=== PATIENT | male | born 1940 | race Caucasian/White ===

== ENCOUNTER 2018-05-30 18:45 | Emergency (ER) | payer MEDICARE, OTHER ==
--- NOTE | 2018-05-30 19:30 | EDM.PDOC ---
ED HPI GENERAL MEDICAL PROBLEM - General Chief Complaint: Genitourinary Problem Stated Complaint: IN ALOT OF PAIN Time Seen by Provider: 05/30/18 19:27 Source of Information: Reports: Patient, Family, RN, RN Notes Reviewed History Limitations: Reports: No Limitations - History of Present Illness INITIAL COMMENTS - FREE TEXT/NARRATIVE: Patient was seen in ER previously today for urinary retention after a same day surgery yesterday. He was catheterized at that time for 1000ml urine output. Patient has drank fluids throughout the day today and returns to the ER uncomfortable with urinary retention again. He was told by the previous provider that he would need to have an indwelling catheter placed for a few days until seen by his primary care facility. Patient states he has had trouble with urinary retention after every surgical procedure he has had. Onset: Today Pelvic Pain Score (Numeric/FACES): 8 - Related Data Allergies Allergy/AdvReac Type Severity Reaction Status Date / Time amoxicillin [Amoxicillin] Allergy Cannot Verified 05/30/18 19:13 Remember Home Meds: Home Meds Aspirin [Aspirin EC] 81 08/20/13 [History] Citric Acid/Sodium Citrate [Cytra-2 Oral Solution] 30 ml PO BID 08/20/13 [ History] Iron 22.5 mg PO 08/20/13 [History] [place]-3S/DHA/Epa/Fish Oil [Fish Oil Dr 1,000 mg Softgel] 1 each PO BID 08/20/13 [History] Pentoxifylline [TRENtal] 400 mg PO TID 08/20/13 [History] Simvastatin [Zocor] 20 mg PO BEDTIME 08/20/13 [History] Tamsulosin [Tamsulosin 24 Hr] 0.4 mg PO DAILY 08/20/13 [History] azaTHIOprine [Imuran] 50 mg PO DAILY 08/20/13 [History] Past Medical History HEENT History: Reports: None Cardiovascular History: Reports: High Cholesterol Respiratory History: Reports: None Gastrointestinal History: Reports: None Genitourinary History: Reports: Prostate Disorder, Other (See Below) Other Genitourinary History: stage 4 kidney disease Neurological History: Reports: None Psychiatric History: Reports: None Endocrine/Metabolic History: Reports: None Hematologic History: Reports: Anemia Immunologic History: Reports: AIDS Oncologic (Cancer) History: Reports: Basal Cell Carcinoma Dermatologic History: Reports: None - Past Surgical History GI Surgical History: Reports: Hernia, Abdominal Musculoskeletal Surgical History: Reports: Knee Replacement Other Musculoskeletal Surgeries/Procedures:: R) knee. Social & Family History - Family History Family Medical History: Noncontributory - Tobacco Use Smoking Status *Q: Never Smoker - Caffeine Use Caffeine Use: Reports: Coffee - Recreational Drug Use Recreational Drug Use: No - Living Situation & Occupation Living situation: Reports: , with Spouse Occupation: Retired ED ROS GENERAL - Review of Systems Review Of Systems: ROS reveals no pertinent complaints other than HPI. ED EXAM, RENAL/ - Physical Exam Exam: See Below Exam Limited By: No Limitations General Appearance: Alert, WD/WN, No Apparent Distress Eye Exam: Bilateral Eye: EOMI, Normal Inspection Ears: Normal External Exam, Hearing Grossly Normal Nose: Nasal Swelling, Other (Recent skin grafting on the nose. Intact, no active bleeding, covered with bandage. ) Throat/Mouth: Normal Inspection, Normal Lips, Normal Teeth, Normal Gums, Normal Oropharynx, Normal Voice, No Airway Compromise Head: Atraumatic, Normocephalic Neck: Other (Ash intact from recent skin grafting done yesterday. No active bleeding or drainage. ) Respiratory/Chest: No Respiratory Distress, Lungs Clear, Normal Breath Sounds, No Accessory Muscle Use, Chest Non-Tender Cardiovascular: Normal Peripheral Pulses, Regular Rate, Rhythm, No Edema, No Gallop, No JVD, No Murmur, No Rub GI/Abdominal: Normal Bowel Sounds, Soft, Non-Tender, No Organomegaly, No Distention, No Abnormal Bruit, No Mass (Male) Exam: Deferred Rectal (Males) Exam: Deferred Back Exam: Normal Inspection, Full Range of Motion, NT Extremities: Normal Inspection, Normal Range of Motion, Non-Tender, Normal Capillary Refill, No Pedal Edema Neurological: Alert, Oriented, CN II-XII Intact, Normal Cognition, Normal Gait, Normal Reflexes, No Motor/Sensory Deficits Psychiatric: Normal Affect, Normal Mood Skin Exam: Warm, Dry, Intact, Normal Color, No Rash Lymphatic: No Adenopathy Course - Vital Signs Last Recorded V/S: Last Vital Signs Temp 100 F 05/30/18 19:16 Pulse 87 05/30/18 19:16 Resp 18 05/30/18 19:16 BP 163/71 H 05/30/18 19:16 Pulse Ox 97 05/30/18 19:16 - Orders/Labs/Meds Orders: Active Orders 24 hr Category Date Time Status Caicedo Catheter Insertion [Insert Urinary Catheter] [OM. Care 05/30/18 19:30 Ordered PC] Q24H Urinary Catheter Assessment [RC] ASDIRECTED Care 05/30/18 19:24 Active - Re-Assessments/Exams Free Text/Narrative Re-Assessment/Exam: 05/30/18 19:46 Indwelling catheter placed by nursing staff. Patient states relief with urine output. A leg bag placed and patient will go home with the catheter. Departure - Departure Time of Disposition: 19:42 Disposition: Home, Self-Care 01 Condition: Good Clinical Impression: Acute urinary retention - Discharge Information *PRESCRIPTION DRUG MONITORING PROGRAM REVIEWED*: No *COPY OF PRESCRIPTION DRUG MONITORING REPORT IN PATIENT JACK: No Instructions: Indwelling Urinary Catheter Care, Adult, Indwelling Urinary Catheter Insertion, Care After, Acute Urinary Retention, Male, [id number] Forms: ED Department Discharge Additional Instructions: Follow up with your primary care facility. [facility] tomorrow to make an appointment with Dr. Hernandez. Drink plenty of fluids. Return to the ER with any further problems. - My Orders Last 24 Hours: My Active Orders 05/30/18 19:24 Urinary Catheter Assessment [RC] ASDIRECTED 05/30/18 19:30 Caicedo Catheter Insertion [Insert Urinary Catheter] [OM.PC] Q24H - Assessment/Plan Last 24 Hours: My Active Orders 05/30/18 19:24 Urinary Catheter Assessment [RC] ASDIRECTED 05/30/18 19:30 Caicedo Catheter Insertion [Insert Urinary Catheter] [OM.PC] Q24H
== END 2018-05-30 20:11 | disposition home or self-care (01) ==
LOC: DL.ED 18:45
DX: R33.9 Retention of urine, unspecified (principal); N18.4 Chronic kidney disease, stage 4 (severe); D63.1 Anemia in chronic kidney disease; Z88.1 Allergy status to other antibiotic agents; Z79.899 Other long term (current) drug therapy
CPT/HCPCS: 51702; 99283

== ENCOUNTER 2019-03-10 14:10 | Emergency (ER) | payer MEDICARE, OTHER ==
[2019-03-10] MEDS ORDERED: Sodium Chloride 0.9% 10 ML Syringe FLUSH PRN (15:37)
[2019-03-10] MEDS ORDERED: Morphine 2 MG/ML Syringe IVPUSH ONE ×2 (16:04→16:50)
[2019-03-10 16:18] LABS: ANION GAP 15.7
[2019-03-10] MEDS ORDERED: Sodium Chloride 0.9% 1,000 ML IV ONE (16:32)
--- NOTE | 2019-03-10 18:42 | EDM.PDOC ---
Scribed by Meg Hernandez 03/10/19 1602 for Nimco Nance NP ED HPI GENERAL MEDICAL PROBLEM - General Chief Complaint: Abdominal Pain Stated Complaint: IN PAIN, POSSIBLE KIDNEY STONE Time Seen by Provider: 03/10/19 15:52 Source of Information: Reports: Patient, RN, RN Notes Reviewed History Limitations: Reports: No Limitations - History of Present Illness INITIAL COMMENTS - FREE TEXT/NARRATIVE: Patient presents to ER stating that on Monday he started with left flank pain. It went away on Monday and returned Monday afternoon. He has a history of kidney stones x3. He has no urinary symptoms. Pain is constant /. 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 At 2 P.M. he had nausea briefly. The pain is colicky in nature. His physician in [place] is Dr. Hernandez. He has allergy to Percocet and amoxicillin. Onset Date: 03/08/19 Duration: Getting Worse Location: Reports: Other (left flank) Quality: Reports: Ache Severity: Moderate Improves with: Reports: None Worsens with: Reports: None Associated Symptoms: Reports: No Other Symptoms Left Flank Pain Score (Numeric/FACES): 8 - Related Data Allergies Allergy/AdvReac Type Severity Reaction Status Date / Time amoxicillin [Amoxicillin] Allergy Rash Verified 03/10/19 14:37 oxycodone [From Percocet] AdvReac Other Verified 03/10/19 14:43 Home Meds: Home Meds Iron 22.5 mg PO DAILY 08/20/13 [History] Pentoxifylline [TRENtal] 400 mg PO BID 08/20/13 [History] Tamsulosin [Tamsulosin 24 Hr] 0.4 mg PO BEDTIME 08/20/13 [History] Acetaminophen/Caffeine [Excedrin Tension Headache Cplt] 1 each PO DAILY PRN [History] atorvaSTATin [Lipitor] 20 mg PO ASDIRECTED 03/10/19 [History] Past Medical History HEENT History: Reports: None Cardiovascular History: Reports: High Cholesterol. Denies: Other (See Below) ( bradycardia) Respiratory History: Reports: None Gastrointestinal History: Reports: None Genitourinary History: Reports: Prostate Disorder, Renal Calculus, Other (See Below) Other Genitourinary History: stage 4 kidney disease Musculoskeletal History: Reports: Other (See Below) (shoulder issues) Neurological History: Reports: None Psychiatric History: Reports: None Endocrine/Metabolic History: Reports: None Hematologic History: Reports: Anemia, Other (See Below) (autoimmune vasculitis 2 -3 months ago.) Immunologic History: Reports: AIDS Oncologic (Cancer) History: Reports: Basal Cell Carcinoma Dermatologic History: Reports: None - Past Surgical History GI Surgical History: Reports: Hernia, Abdominal Musculoskeletal Surgical History: Reports: Knee Replacement Other Musculoskeletal Surgeries/Procedures:: R) knee. Social & Family History - Family History Family Medical History: Noncontributory - Tobacco Use Smoking Status *Q: Never Smoker - Caffeine Use Caffeine Use: Reports: Coffee Caffeine Use Comment: 3 cups daily. - Recreational Drug Use Recreational Drug Use: No - Living Situation & Occupation Living situation: Reports: , with Spouse Occupation: Retired ED ROS GENERAL - Review of Systems Review Of Systems: ROS reveals no pertinent complaints other than HPI. ED EXAM, GI/ABD - Physical Exam Exam: See Below Exam Limited By: No Limitations General Appearance: Alert, WD/WN, Mild Distress Eyes: Bilateral: Normal Appearance Head: Atraumatic, Normocephalic Respiratory/Chest: No Respiratory Distress, Lungs Clear, Normal Breath Sounds, No Accessory Muscle Use, Chest Non-Tender Cardiovascular: Normal Peripheral Pulses, Regular Rate, Rhythm, No Edema, No Gallop, No JVD, No Murmur, No Rub GI/Abdominal Exam: Normal Bowel Sounds, Soft, Tender (left flank tenderness) Back Exam: Other (left CVA tenderness) Extremities: Normal Inspection Neurological: Alert, Oriented Skin Exam: Warm, Dry, Intact, Normal Color, No Rash Course - Vital Signs Last Recorded V/S: Last Vital Signs Temp 36.9 C 03/10/19 14:18 Pulse 48 L 03/10/19 17:38 Resp 18 03/10/19 17:38 BP 158/60 H 03/10/19 17:38 Pulse Ox 97 03/10/19 17:38 - Orders/Labs/Meds Orders: Active Orders 24 hr Category Date Time Status Peripheral IV Care [RC] . DIRECTED Care 03/10/19 15:37 Active Sodium Chloride 0.9% [Saline Flush] Med 03/10/19 15:37 Active 10 ml FLUSH ASDIRECTED PRN Peripheral IV Insertion Adult [OM.PC] Routine Oth 03/10/19 15:37 Ordered Medication Orders Sodium Chloride (Saline Flush) 10 ml FLUSH ASDIRECTED PRN PRN Reason: Keep Vein Open Last Admin: 03/10/19 15:45 Dose: 10 ml Labs: Laboratory Tests 03/10/19 03/10/19 03/10/19 Range/Units 14:30 15:44 15:44 WBC 12.1 H (5.0-10.0) 10^3/uL RBC 4.10 L (4.6-6.2) 10^6/uL Hgb 13.0 L (14.0-18.0) g/dL Hct 38.9 L (40.0-54.0) % MCV 94.9 (80-100) fL MCH 31.7 (27.0-34.0) pg MCHC 33.4 (33.0-35.0) g/dL Plt Count 199 (150-450) 10^3/uL Neut % (Auto) 89.8 H (42.2-75.2) % Lymph % (Auto) 5.1 L (20.5-50.1) % [place] % (Auto) 5.0 (2-8) % Eos % (Auto) 0.0 L (1.0-3.0) % Baso % (Auto) 0.1 (0.0-1.0) % Sodium 135 (135-145) mmol/L Potassium 4.7 (3.6-5.0) mmol/L Chloride 101 (101-111) mmol/L Carbon Dioxide 23.0 (21.0-31.0) mmol/L Anion Gap 15.7 BUN 61 H (7-18) mg/dL Creatinine 4.2 H (0.6-1.3) mg/dL Est Cr Clr Drug Dosing 13.80 mL/min Estimated GFR (MDRD) 14 BUN/Creatinine Ratio 14.52 Glucose 137 H (74-105) mg/dL Calcium 9.1 (8.4-10.2) mg/dl Total Bilirubin 1.1 H (0.2-1.0) mg/dL AST 20 (10-42) IU/L ALT 20 (10-60) IU/L Alkaline Phosphatase 43 (42-121) IU/L Total Protein 7.1 (6.7-8.2) g/dl Albumin 3.9 (3.2-5.5) g/dl Globulin 3.2 Albumin/Globulin Ratio 1.22 Urine Color Yellow (YELLOW) Urine Appearance Clear (CLEAR) Urine pH 5.5 (5.0-9.0) Ur Specific [place] 1.025 (1.005-1.030) Urine Protein 100 H (NEGATIVE) Urine Glucose (UA) Negative (NEGATIVE) Urine Ketones Negative (NEGATIVE) Urine Occult Blood Moderate H (NEGATIVE) Urine Nitrite Positive H (NEGATIVE) Urine Bilirubin Negative (NEGATIVE) Urine Urobilinogen 0.2 (0.2-1.0) mg/dL Ur Leukocyte Esterase Trace H (NEGATIVE) Urine RBC 20-30 H /HPF Urine WBC 0-5 (0-5/HPF) /HPF Ur Epithelial Cells Few (NOT SEEN) /HPF Urine Bacteria Few (0-FEW/HPF) /HPF Urine Mucus Few H (NOT SEEN) /LPF Meds: Medications Generic Name Dose Route Start Last Admin Trade Name Freq PRN Reason Stop Dose Admin Sodium Chloride 10 ml 03/10/19 15:37 03/10/19 15:45 Saline Flush FLUSH 10 ml ASDIRECTED PRN Administration Keep Vein Open Discontinued Medications Generic Name Dose Route Start Last Admin Trade Name Freq PRN Reason Stop Dose Admin Sodium Chloride 1,000 mls @ 2,000 mls/hr 03/10/19 16:32 03/10/19 16:54 Normal Saline IV 03/10/19 17:01 2,000 mls/hr .BOLUS ONE Administration Morphine Sulfate 2 mg 03/10/19 16:04 03/10/19 16:09 Morphine IVPUSH 03/10/19 16:05 2 mg ONETIME ONE Administration Morphine Sulfate 2 mg 03/10/19 16:50 03/10/19 16:55 Morphine IVPUSH 03/10/19 16:51 2 mg ONETIME ONE Administration - Radiology Interpretation Free Text/Narrative:: CT abdomen/pelvis: Moderate left hydronephrosis, no sign of an obstructing calculus. ?Recently passed and subsequently voided calculus. Right nephrolithiasis without hydronephrosis. 2cm right common iliac artery aneurysm. Multiple chronic appearing lumbar compression fractures, L5 spondylolysis with grade 1 spondylolisthesis. See rad report. - Re-Assessments/Exams Free Text/Narrative Re-Assessment/Exam: 03/10/19 18:39 Most likely a stone passed left ureter with mild hydronephrosis. He has a stone in the right . Still having left over discomfort on the left flank. Urine negative for infection. Departure - Departure Time of Disposition: 18:37 Disposition: Refer to Observation Condition: Good Clinical Impression: Renal stone - Discharge Information *PRESCRIPTION DRUG MONITORING PROGRAM REVIEWED*: Not Applicable *COPY OF PRESCRIPTION DRUG MONITORING REPORT IN PATIENT JACK: Not Applicable Instructions: Renal Colic Forms: ED Department Discharge Additional Instructions: Take flomax tonight. Increase oral intake. See PCP this week. We discussed your CT scan and will need your creatine rechecked. [place] (pain medication) only as needed. - My Orders Last 24 Hours: My Active Orders 03/10/19 15:37 Peripheral IV Care [RC] . DIRECTED Sodium Chloride 0.9% [Saline Flush] 10 ml FLUSH ASDIRECTED PRN Peripheral IV Insertion Adult [OM.PC] Routine - Assessment/Plan Last 24 Hours: My Active Orders 03/10/19 15:37 Peripheral IV Care [RC] . DIRECTED Sodium Chloride 0.9% [Saline Flush] 10 ml FLUSH ASDIRECTED PRN Peripheral IV Insertion Adult [OM.PC] Routine I have read and agree with the documentation that has been completed regarding this visit. By signing this record, I attest that the documentation was completed in my physical presence and is an accurate record of the encounter.
[2019-03-10] MEDS ORDERED: Acetaminophen/HYDROcodone 325-5 MG Tab ONE (18:45)
== END 2019-03-10 19:00 | disposition home or self-care (01) ==
LOC: DL.ED 14:10
DX: N13.2 Hydronephrosis with renal and ureteral calculous obstruction (principal); E78.00 Pure hypercholesterolemia, unspecified; N18.4 Chronic kidney disease, stage 4 (severe); B20 Human immunodeficiency virus [HIV] disease; N42.9 Disorder of prostate, unspecified; Z88.1 Allergy status to other antibiotic agents; Z79.899 Other long term (current) drug therapy; Z88.5 Allergy status to narcotic agent
CPT/HCPCS: 36415; 74176; 80053; 81001; 85025; 96374; 96376; 99283; J2270; J7030

== ENCOUNTER 2022-12-02 18:07 | Emergency (ER) | payer MEDICARE, OTHER | END 2022-12-02 19:10 | disposition left against medical advice (07) | LOC: DL.ED 18:07 | DX: Z53.21 Procedure and treatment not carried out due to patient leaving prior to being seen by health care provider (principal) ==

== ENCOUNTER 2023-01-04 13:12 | Emergency (ER) | payer MEDICARE, OTHER | END 2023-01-04 14:51 | disposition home or self-care (01) | LOC: DL.ED 13:12 | DX: R19.7 Diarrhea, unspecified (principal); J45.909 Unspecified asthma, uncomplicated; I48.91 Unspecified atrial fibrillation; Z88.0 Allergy status to penicillin; Z88.5 Allergy status to narcotic agent | CPT/HCPCS: 99283 ==

== ENCOUNTER 2023-01-24 13:25 | Emergency (ER) | payer MEDICARE, OTHER ==
[2023-01-24 14:33] LABS: BASOPHILS PERCENT AUTO 0.8 % (0.0-1.0); EOSINOPHILS PERCENT AUTO 3.9 % (1.0-3.0); HEMATOCRIT 33.3 % (40.0-54.0); HEMOGLOBIN 10.7 g/dL (14.0-18.0); LYMPHOCYTES PERCENT AUTO 23.1 % (20.5-50.1); MEAN CORPUSCULAR HEMOGLOBIN 31.1 pg (27.0-34.0); MEAN CORPUSCULAR HGB CONC 32.1 g/dL (33.0-35.0); MEAN CORPUSCULAR VOLUME 96.8 fL (80-100); MONOCYTES PERCENT AUTO 15.9 % (2-8); NEUTROPHILS PERCENT AUTO 56.3 % (42.2-75.2); PLATELET COUNT,PLT 147 10^3/uL (150-450); RED BLOOD CELL COUNT 3.44 10^6/uL (4.6-6.2); WHITE BLOOD CELL COUNT,WBC 5.2 10^3/uL (5.0-10.0)
[2023-01-24 15:03] LABS: INR 0.9 (0.9-1.2); PROTHROMBIN TIME 9.7 SEC (9.0-12.0); PTT,PARTIAL THROMBOPLSTIN TIME 31.4 SEC (22.0-34.0)
[2023-01-24 15:08] LABS: SEDIMENTATION RATE MANUAL 65 mm/hr (0-15)
[2023-01-24 15:19] LABS: ALBUMIN 2.8 g/dL (3.4-5.0); ANION GAP 9.8 mEq/L (7-13); BILIRUBIN TOTAL 0.4 mg/dL (0.2-1.0); BUN/CREATININE RATIO 8.5 (No establ ref range); C-REACTIVE PROTEIN 0.4 mg/dL (0.0-0.9); CALCIUM 7.9 mg/dL (8.5-10.1); CREATININE 4.01 mg/dL (0.70-1.30); EST CRCL DRUG DOSING (CG) 13.05 mL/min; MAGNESIUM 1.8 mg/dL (1.8-2.4); PHOSPHORUS 3.5 mg/dL (2.6-4.7); POTASSIUM,K 3.8 mmol/L (3.5-5.1); PROTEIN TOTAL,TP 7.1 g/dL (6.4-8.2); TSH ULTRASENSITIVE 2.46 uIU/mL (0.36-3.74)
[2023-01-24 15:31] LABS: A/G RATIO 0.65
== END 2023-01-24 15:37 | disposition left against medical advice (07) ==
LOC: DL.ED 13:25
DX: R20.0 Anesthesia of skin (principal); Z53.29 Procedure and treatment not carried out because of patient's decision for other reasons; N18.4 Chronic kidney disease, stage 4 (severe); D63.1 Anemia in chronic kidney disease; I48.91 Unspecified atrial fibrillation; E78.00 Pure hypercholesterolemia, unspecified; J45.909 Unspecified asthma, uncomplicated; Z88.0 Allergy status to penicillin; Z88.5 Allergy status to narcotic agent; Z79.899 Other long term (current) drug therapy
CPT/HCPCS: 36415; 70450; 72125; 80053; 82607; 83735; 84100; 84443; 84484; 85025; 85610; 85651; 85730; 86140; 93005; 93010; 99284

== ENCOUNTER 2023-09-25 19:11 | Emergency (ER) | payer MEDICARE, OTHER ==
[2023-09-25 20:06] LABS: APPEARANCE,URINE CLEAR (CLEAR); BILIRUBIN,URINE NEGATIVE (NEGATIVE); COLOR,URINE YELLOW (YELLOW); GLUCOSE,URINE NEGATIVE (NEGATIVE); KETONES,URINE NEGATIVE (NEGATIVE); LEUKOCYTE ESTERASE,URINE NEGATIVE (NEGATIVE); NITRITE,URINE NEGATIVE (NEGATIVE); OCCULT BLOOD,URINE MODERATE (NEGATIVE); PH,URINE 8.5 (5.0-9.0); PROTEIN,URINE 100 (NEGATIVE); UROBILINOGEN,URINE 0.2 mg/dL (0.2-1.0)
[2023-09-25 20:16] LABS: BACTERIA,URINE FEW /HPF (0-FEW/HPF); EPITHELIAL CELLS,URINE FEW /HPF (NOT SEEN); HYALINE CASTS,URINE RARE; MUCUS,URINE RARE /LPF (NOT SEEN); RBC,URINE 30-40 /HPF (0-5); WBC,URINE 0-5 /HPF (0-5/HPF)
[2023-09-25] MEDS: Sulfamethoxazole/Trimethoprim 800-160 MG Tab PO ONE (20:39)
== END 2023-09-25 20:55 | disposition home or self-care (01) ==
LOC: DL.ED 19:11
DX: R33.9 Retention of urine, unspecified (principal); E78.00 Pure hypercholesterolemia, unspecified; I48.91 Unspecified atrial fibrillation; J45.909 Unspecified asthma, uncomplicated; Z88.0 Allergy status to penicillin; Z88.5 Allergy status to narcotic agent; Z79.51 Long term (current) use of inhaled steroids; Z79.899 Other long term (current) drug therapy
CPT/HCPCS: 51702; 81001; 99283; 99284; A9270

== ENCOUNTER 2023-10-20 00:11 | Emergency (ER) | payer MEDICARE, OTHER ==
[2023-10-20 00:37] LABS: BASOPHILS PERCENT AUTO 0.3 % (0.0-1.0); EOSINOPHILS PERCENT AUTO 2.4 % (1.0-3.0); HEMATOCRIT 30.5 % (40.0-54.0); HEMOGLOBIN 9.2 g/dL (14.0-18.0); LYMPHOCYTES PERCENT AUTO 10.1 % (20.5-50.1); MEAN CORPUSCULAR HEMOGLOBIN 29.6 pg (27.0-34.0); MEAN CORPUSCULAR HGB CONC 30.2 g/dL (33.0-35.0); MEAN CORPUSCULAR VOLUME 98.1 fL (80-100); MONOCYTES PERCENT AUTO 14.8 % (2-8); NEUTROPHILS PERCENT AUTO 72.4 % (42.2-75.2); PLATELET COUNT,PLT 214 10^3/uL (150-450); RED BLOOD CELL COUNT 3.11 10^6/uL (4.6-6.2); WHITE BLOOD CELL COUNT,WBC 8.9 10^3/uL (5.0-10.0)
[2023-10-20 00:56] LABS: PROTHROMBIN TIME 10.7 SEC (9.0-12.0); PTT,PARTIAL THROMBOPLSTIN TIME 28.6 SEC (22.0-34.0)
[2023-10-20 00:59] LABS: ALANINE AMINOTRANSFERASE,ALT 15 U/L (16-63); ALBUMIN 2.1 g/dL (3.4-5.0); ALKALINE PHOSPHATASE 52 U/L (46-116); ANION GAP 12.8 mEq/L (7-13); ASPARTATE AMNIOTRANSFERASE,AST 11 U/L (15-37); BILIRUBIN TOTAL 0.3 mg/dL (0.2-1.0); BLOOD UREA NITROGEN,BUN 29 mg/dL (7-18); BUN/CREATININE RATIO 8.1 (No establ ref range); CALCIUM 8.3 mg/dL (8.5-10.1); CARBON DIOXIDE,CO2 27 mmol/L (21-32); CHLORIDE,CL 102 mmol/L (98-107); CREATININE 3.58 mg/dL (0.70-1.30); GLUCOSE RANDOM 144 mg/dL (70-99); POTASSIUM,K 4.8 mmol/L (3.5-5.1); PROTEIN TOTAL,TP 6.7 g/dL (6.4-8.2); SODIUM,NA 137 mmol/L (136-145)
[2023-10-20 01:01] LABS: A/G RATIO 0.46; ESTIMATED GFR 16 mL/min (>=60)
== END 2023-10-20 02:40 | disposition home or self-care (01) ==
LOC: DL.ED 00:11
DX: T82.838A Hemorrhage due to vascular prosthetic devices, implants and grafts, initial encounter (principal); I48.91 Unspecified atrial fibrillation; E78.00 Pure hypercholesterolemia, unspecified; Z88.0 Allergy status to penicillin; Z88.5 Allergy status to narcotic agent; Z79.51 Long term (current) use of inhaled steroids; Z79.899 Other long term (current) drug therapy
CPT/HCPCS: 36415; 80053; 85025; 85610; 85730; 99284

== ENCOUNTER 2023-10-20 05:37 | Emergency (ER) | payer MEDICARE, OTHER ==
[2023-10-20 06:05] LABS: BASOPHILS PERCENT AUTO 0.3 % (0.0-1.0); EOSINOPHILS PERCENT AUTO 1.3 % (1.0-3.0); HEMATOCRIT 30.9 % (40.0-54.0); HEMOGLOBIN 9.4 g/dL (14.0-18.0); LYMPHOCYTES PERCENT AUTO 13.8 % (20.5-50.1); MEAN CORPUSCULAR HEMOGLOBIN 29.7 pg (27.0-34.0); MEAN CORPUSCULAR HGB CONC 30.4 g/dL (33.0-35.0); MEAN CORPUSCULAR VOLUME 97.8 fL (80-100); MONOCYTES PERCENT AUTO 13.3 % (2-8); NEUTROPHILS PERCENT AUTO 71.3 % (42.2-75.2); PLATELET COUNT,PLT 212 10^3/uL (150-450); RED BLOOD CELL COUNT 3.16 10^6/uL (4.6-6.2); WHITE BLOOD CELL COUNT,WBC 8.8 10^3/uL (5.0-10.0)
[2023-10-20 06:25] LABS: ALANINE AMINOTRANSFERASE,ALT 15 U/L (16-63); ALBUMIN 2.2 g/dL (3.4-5.0); ALKALINE PHOSPHATASE 51 U/L (46-116); ANION GAP 14.9 mEq/L (7-13); ASPARTATE AMNIOTRANSFERASE,AST 14 U/L (15-37); BILIRUBIN TOTAL 0.3 mg/dL (0.2-1.0); BLOOD UREA NITROGEN,BUN 33 mg/dL (7-18); BUN/CREATININE RATIO 8.5 (No establ ref range); CALCIUM 8.5 mg/dL (8.5-10.1); CARBON DIOXIDE,CO2 25 mmol/L (21-32); CHLORIDE,CL 101 mmol/L (98-107); CREATININE 3.88 mg/dL (0.70-1.30); GLUCOSE RANDOM 141 mg/dL (70-99); POTASSIUM,K 4.9 mmol/L (3.5-5.1); SODIUM,NA 136 mmol/L (136-145)
[2023-10-20 06:26] LABS: A/G RATIO 0.46; ESTIMATED GFR 15 mL/min (>=60)
[2023-10-20] MEDS: Iopamidol 755 Mg/ML 100 ML Bottle IVPUSH ONE (06:30)
[2023-10-20] MEDS: Sodium Chloride 0.9% 1,000 ML IV ONE (06:34)
[2023-10-20] MEDS: Tranexamic Acid 1,000 MG/10 ML Vial TOP ONE (07:35)
== END 2023-10-20 10:46 ==
LOC: DL.ED 05:37
DX: T82.838A Hemorrhage due to vascular prosthetic devices, implants and grafts, initial encounter (principal); Z88.0 Allergy status to penicillin; Z88.5 Allergy status to narcotic agent; Z79.51 Long term (current) use of inhaled steroids; Z79.899 Other long term (current) drug therapy
CPT/HCPCS: 36415; 74177; 80053; 85025; 96360; 99285-25; J3490; J7030; Q9967

== ENCOUNTER 2024-02-13 04:32 | Emergency (ER) | payer MEDICARE, OTHER ==
[2024-02-13 05:00] LABS: APPEARANCE,URINE CLEAR (CLEAR); BILIRUBIN,URINE NEGATIVE (NEGATIVE); COLOR,URINE YELLOW (YELLOW); GLUCOSE,URINE NEGATIVE (NEGATIVE); KETONES,URINE NEGATIVE (NEGATIVE); LEUKOCYTE ESTERASE,URINE NEGATIVE (NEGATIVE); NITRITE,URINE NEGATIVE (NEGATIVE); OCCULT BLOOD,URINE MODERATE (NEGATIVE); PROTEIN,URINE 100 (NEGATIVE); UROBILINOGEN,URINE 0.2 mg/dL (0.2-1.0)
[2024-02-13 05:11] LABS: BACTERIA,URINE RARE /HPF (0-FEW/HPF); EPITHELIAL CELLS,URINE NOT SEEN /HPF (NOT SEEN); MUCUS,URINE FEW /LPF (NOT SEEN); RBC,URINE 50-75 /HPF (0-5); WBC,URINE 0-5 /HPF (0-5/HPF)
== END 2024-02-13 05:33 | disposition home or self-care (01) ==
LOC: DL.ED 04:32
DX: R33.9 Retention of urine, unspecified (principal); Z79.899 Other long term (current) drug therapy; Z88.0 Allergy status to penicillin; Z88.5 Allergy status to narcotic agent
CPT/HCPCS: 51702; 81001; 99283; 99284

== ENCOUNTER 2024-05-13 17:39 | Emergency (ER) | payer MEDICARE, OTHER ==
[2024-05-13 18:37] LABS: BASOPHILS PERCENT AUTO 0.1 % (0.0-1.0); EOSINOPHILS PERCENT AUTO 1.2 % (1.0-3.0); HEMATOCRIT 37.5 % (40.0-54.0); HEMOGLOBIN 11.9 g/dL (14.0-18.0); LYMPHOCYTES PERCENT AUTO 8.6 % (20.5-50.1); MEAN CORPUSCULAR HGB CONC 31.7 g/dL (33.0-35.0); MEAN CORPUSCULAR VOLUME 103.9 fL (80-100); MONOCYTES PERCENT AUTO 11.2 % (2-8); NEUTROPHILS PERCENT AUTO 78.9 % (42.2-75.2); PLATELET COUNT,PLT 193 10^3/uL (150-450); RED BLOOD CELL COUNT 3.61 10^6/uL (4.6-6.2); WHITE BLOOD CELL COUNT,WBC 10.4 10^3/uL (5.0-10.0)
[2024-05-13 18:56] LABS: PROTHROMBIN TIME 10.2 SEC (9.0-12.0)
[2024-05-13 18:59] LABS: ALANINE AMINOTRANSFERASE,ALT 15 U/L (16-63); ALBUMIN 2.9 g/dL (3.4-5.0); ALKALINE PHOSPHATASE 77 U/L (46-116); ANION GAP 13.1 mEq/L (7-13); ASPARTATE AMNIOTRANSFERASE,AST 13 U/L (15-37); BILIRUBIN TOTAL 0.4 mg/dL (0.2-1.0); BLOOD UREA NITROGEN,BUN 23 mg/dL (7-18); BUN/CREATININE RATIO 7.7 (No establ ref range); CALCIUM 8.5 mg/dL (8.5-10.1); CARBON DIOXIDE,CO2 30 mmol/L (21-32); CHLORIDE,CL 100 mmol/L (98-107); CREATININE 2.98 mg/dL (0.70-1.30); EST CRCL DRUG DOSING (CG) 17.25 mL/min; GLUCOSE RANDOM 95 mg/dL (70-99); POTASSIUM,K 4.1 mmol/L (3.5-5.1); PROTEIN TOTAL,TP 7.9 g/dL (6.4-8.2); SODIUM,NA 139 mmol/L (136-145)
[2024-05-13 19:00] LABS: A/G RATIO 0.58; ESTIMATED GFR 20 mL/min (>=60); ETHANOL BLOOD MEDICAL < 3 mg/dL (0)
[2024-05-13] MEDS: Iopamidol 612 MG/ML 100 ML Bottle IVPUSH ONE (19:03)
[2024-05-13] MEDS: metroNIDAZOLE/Normal Saline 500 MG in Premix Bag 1 BAG IV ONE (20:29)
[2024-05-13 20:41] LABS: LACTIC ACID 0.7 mmol/L (0.4-2.0)
[2024-05-13] MEDS: Ciprofloxacin in D5W 400 MG in Premix Bag 1 BAG IV ONE (21:30)
== END 2024-05-13 21:40 ==
LOC: DL.ED 17:39
DX: K92.2 Gastrointestinal hemorrhage, unspecified (principal); I12.0 Hypertensive chronic kidney disease with stage 5 chronic kidney disease or end stage renal disease; N18.6 End stage renal disease; D63.1 Anemia in chronic kidney disease; K61.0 Anal abscess; N40.0 Benign prostatic hyperplasia without lower urinary tract symptoms; K76.9 Liver disease, unspecified; K86.9 Disease of pancreas, unspecified; D73.89 Other diseases of spleen; J45.909 Unspecified asthma, uncomplicated; Z86.16 Personal history of COVID-19; Z96.659 Presence of unspecified artificial knee joint; Z88.0 Allergy status to penicillin; Z88.5 Allergy status to narcotic agent; Z79.51 Long term (current) use of inhaled steroids; Z79.899 Other long term (current) drug therapy; Z99.2 Dependence on renal dialysis
CPT/HCPCS: 36415; 74177; 80053; 80307; 82272; 83605; 85025; 85610; 86850; 86900; 86901; 93005; 96365; 96375; 99285; J0744; J1836; Q9967

== ENCOUNTER 2025-03-07 23:19 | Emergency (ER) | payer MEDICARE, OTHER ==
[2025-03-07] MEDS ORDERED: Take Home: Acetaminophen/oxyCODONE 325-5 MG, 5 Tab Pack PO ONE (23:49)
[2025-03-07] MEDS ORDERED: Take Home: Amoxicillin 500 MG, 6 Cap Pack PO ONE (23:55)
[2025-03-08] MEDS: Take Home: Amoxicillin 500 MG, 6 Cap Pack PO ONE (00:17)
[2025-03-08] MEDS: Take Home: Acetaminophen/HYDROcodone 325-5 MG, 5 Tab Pack PO ONE (00:32)
== END 2025-03-08 00:38 | disposition home or self-care (01) ==
LOC: DL.ED 23:19
DX: K04.7 Periapical abscess without sinus (principal); I48.91 Unspecified atrial fibrillation; E78.00 Pure hypercholesterolemia, unspecified; J45.909 Unspecified asthma, uncomplicated; Z88.8 Allergy status to other drugs, medicaments and biological substances; Z79.899 Other long term (current) drug therapy; Z86.16 Personal history of COVID-19
CPT/HCPCS: 99282; A9270

== ENCOUNTER 2025-03-26 22:07 | Emergency (ER) | payer MEDICARE, OTHER ==
[2025-03-26] MEDS: Iopamidol 612 MG/ML 100 ML Bottle IVPUSH ONE (23:39)
[2025-03-26] MEDS: fentaNYL 100 MCG/2 ML SDV IVPUSH ONE (23:46)
[2025-03-27 00:52] LABS: BASOPHILS PERCENT AUTO 0.2 % (0.0-1.0); EOSINOPHILS PERCENT AUTO 0.3 % (1.0-3.0); LYMPHOCYTES PERCENT AUTO 3.8 % (20.5-50.1); MONOCYTES PERCENT AUTO 9.5 % (2-8); NEUTROPHILS PERCENT AUTO 86.2 % (42.2-75.2); PLATELET COUNT,PLT 160 10^3/uL (150-450); RED BLOOD CELL COUNT 3.17 10^6/uL (4.6-6.2); WHITE BLOOD CELL COUNT,WBC 15.3 10^3/uL (5.0-10.0)
[2025-03-27] MEDS: fentaNYL 100 MCG/2 ML SDV IVPUSH ONE (03:00)
== END 2025-03-27 03:04 ==
LOC: DL.ED 22:07
DX: S32.592A Other specified fracture of left pubis, initial encounter for closed fracture (principal); I48.91 Unspecified atrial fibrillation; E78.00 Pure hypercholesterolemia, unspecified; I25.10 Atherosclerotic heart disease of native coronary artery without angina pectoris; I11.0 Hypertensive heart disease with heart failure; I50.9 Heart failure, unspecified; Z95.0 Presence of cardiac pacemaker; Z88.0 Allergy status to penicillin; Z88.5 Allergy status to narcotic agent; Z79.899 Other long term (current) drug therapy; Z86.16 Personal history of COVID-19; W18.39XA Other fall on same level, initial encounter; Y93.89 Activity, other specified
CPT/HCPCS: 29125; 36415; 70450; 72125; 72170; 73100; 74177; 85025; 96374; 96376; 99284; 99285; J3010; Q9967